=== PATIENT | male | born 1985 | race Caucasian/White ===

== ENCOUNTER 2021-11-29 14:25 | Emergency (ER) | payer OTHER ==
[2021-11-29 14:37] VITALS: BP 111/69; PULSE 86; RESP 20; TEMP 97.9
[2021-11-29] MEDS ORDERED: CLINDAMYCIN 150 MG CAP PO STA (17:03)
[2021-11-29] MEDS ORDERED: CEPHALEXIN 500 MG CAP PO STA (17:03)
--- NOTE | 2021-11-29 17:09 | ED ---
General Adult HPI - General Chief complaint: Skin/Abscess/Foreign Body Stated complaint: abcess on arm Time Seen by Provider: 11/29/21 16:29 Source: patient, RN notes reviewed, old records reviewed Mode of arrival: ambulatory Limitations: no limitations - History of Present Illness Initial comments: 36-year-old male with bilateral arm swelling and open sores. Patient has been using heroin for the past 18 months. The patient states his arms up and chronically infected he's had multiple rounds of antibiotics. He presented to [facility] and was sent to the emergency department for evaluation. He has not had any fever or systemic symptoms. He states that occasionally there is locations a drain on his arms. No significant pain. - Related Data Previous Rx's Medication Instructions Recorded Cephalexin [Keflex] 500 mg PO Q6HR 14 Days #56 cap 11/29/21 Clindamycin [Cleocin] 300 mg PO QID 14 Days #112 cap 11/29/21 Mupirocin 2% Oint [Bactroban 2% 1 applic TOPICAL TID #22 gm 11/29/21 Oint] Allergies Allergy/AdvReac Type Severity Reaction Status Date / Time morphine Allergy Anaphylaxis Verified 11/29/21 14:38 sulfadiazine Allergy Nausea & Verified 11/29/21 14:38 Vomiting sulfamethoxazole Allergy Nausea & Verified 11/29/21 14:38 [From Bactrim] Vomiting trimethoprim [From Bactrim] Allergy Nausea & Verified 11/29/21 14:38 Vomiting Review of Systems ROS Statement: Those systems with pertinent positive or pertinent negative responses have been documented in the HPI. ROS Other: All systems not noted in ROS Statement are negative. Past Medical History Past Medical History: No Reported History History of Any Multi-Drug Resistant Organisms: None Reported Past Surgical History: No Surgical Hx Reported Past Psychological History: No Psychological Hx Reported Smoking Status: Current every day smoker Past Alcohol Use History: None Reported Past Drug Use History: Heroin, IV Drug Use General Exam Limitations: no limitations General appearance: alert, in no apparent distress Head exam: Present: atraumatic, normocephalic Eye exam: Present: normal appearance, PERRL Cardiovascular Exam: Present: regular rate, normal rhythm GI/Abdominal exam: Present: soft. Absent: distended, tenderness Extremities exam: Present: other (Bilateral upper extremity open sores and cellulitis. I do not find a drainable abscess.) Neurological exam: Present: alert, oriented X3, CN II-XII intact. Absent: motor sensory deficit Psychiatric exam: Present: normal affect, normal mood Course Vital Signs 11/29/21 14:35 Temperature 97.9 F Pulse Rate 86 Respiratory 20 Rate Blood Pressure 111/69 O2 Sat by Pulse 100 Oximetry Medical Decision Making - Medical Decision Making 36-year-old male with IV drug abuse, multiple areas of open wounds on the bilateral upper extremities without a drainable abscess found. There is some cellulitis associated. Patient does not want any laboratory testing and prefers to try oral antibiotics rather than IV antibiotics at this time. Given that the patient has no systemic symptoms, no fever. I will allow for a trial of oral antibiotics. He started on Keflex and clindamycin in the emergency department. He is given a prescription for clindamycin, Keflex and mupirocin. Strict return parameters were discussed in his forearms are covered with a light dressing. Disposition Clinical Impression: Open wounds involving multiple regions of upper extremity, Cellulitis Disposition: HOME SELF-CARE Condition: Fair Instructions (If sedation given, give patient instructions): Cellulitis (ED) Additional Instructions: Please take antibiotics as prescribed, please change dressing daily on bilateral forearms. Prescriptions: Mupirocin 2% Oint [Bactroban 2% Oint] 1 applic TOPICAL TID #22 gm Clindamycin [Cleocin] 300 mg PO QID 14 Days #112 cap Cephalexin [Keflex] 500 mg PO Q6HR 14 Days #56 cap Is patient prescribed a controlled substance at d/c from ED?: No Referrals: None,Stated [Primary Care Provider] - 1-2 days Jasper Cruz MD [STAFF PHYSICIAN] - 1-2 days Time of Disposition: 17:07
== END 2021-11-29 17:30 | disposition home or self-care (01) ==
LOC: EC 14:25
DX: S41.102A Unspecified open wound of left upper arm, initial encounter (principal); S41.101A Unspecified open wound of right upper arm, initial encounter; L03.113 Cellulitis of right upper limb; L03.114 Cellulitis of left upper limb; F17.200 Nicotine dependence, unspecified, uncomplicated; Z88.6 Allergy status to analgesic agent; Z88.2 Allergy status to sulfonamides; X58.XXXA Exposure to other specified factors, initial encounter
CPT/HCPCS: 99282

== ENCOUNTER 2021-12-04 15:12 | Observation (INO) | payer OTHER ==
--- NOTE | 2021-12-04 15:49 | ED ---
General Adult HPI - General Chief complaint: Skin/Abscess/Foreign Body Stated complaint: Repeat cellulitis Time Seen by Provider: 12/04/21 15:30 Source: patient, RN notes reviewed, old records reviewed Mode of arrival: ambulatory - History of Present Illness Initial comments: Patient is a 36-year-old male presents to the emergency room with complaints of worsening of drainage and swelling along with pain to his bilateral upper extremities. He reports that he has been having ongoing upper extremity wounds for approximately 6 months. He was seen here in the emergency room on 11/29/2021 for similar symptoms and was started on Cleocin and Keflex. 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 He is complaining of generalized malaise he believes that it is a combination of worsening of his bilateral upper extremity is infections along with withdrawals from heroin. He is feeling anxious and occasional flushing and chills but denies chart tagging his temperature on a regular basis. He did does report occasional nausea but denies any vomiting. He admits to injecting heroin into his upper extremities up until one day prior to come to the emergency room last week. He states that he is hoping to remain drug free and is attempting to become admitted into a rehab facility after he has medically stable. 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 - Related Data Previous Rx's Medication Instructions Recorded Cephalexin [Keflex] 500 mg PO Q6HR 14 Days #56 cap 11/29/21 Clindamycin [Cleocin] 300 mg PO QID 14 Days #112 cap 11/29/21 Mupirocin 2% Oint [Bactroban 2% 1 applic TOPICAL TID #22 gm 11/29/21 Oint] Allergies Allergy/AdvReac Type Severity Reaction Status Date / Time morphine Allergy Anaphylaxis Verified 12/04/21 17:11 sulfadiazine Allergy Nausea & Verified 12/04/21 17:11 Vomiting sulfamethoxazole Allergy Nausea & Verified 12/04/21 17:11 [From Bactrim] Vomiting trimethoprim [From Bactrim] Allergy Nausea & Verified 12/04/21 17:11 Vomiting Review of Systems ROS Statement: Those systems with pertinent positive or pertinent negative responses have been documented in the HPI. ROS Other: All systems not noted in ROS Statement are negative. Past Medical History Past Medical History: No Reported History History of Any Multi-Drug Resistant Organisms: None Reported Past Surgical History: No Surgical Hx Reported Past Psychological History: No Psychological Hx Reported Smoking Status: Current every day smoker Past Alcohol Use History: None Reported Past Drug Use History: Heroin, IV Drug Use General Exam General appearance: alert, in no apparent distress Head exam: Present: atraumatic, normocephalic, normal inspection Eye exam: Present: normal appearance, PERRL, EOMI. Absent: scleral icterus, conjunctival injection, periorbital swelling ENT exam: Present: normal exam, mucous membranes moist Neck exam: Present: normal inspection. Absent: tenderness, meningismus, lymphadenopathy Respiratory exam: Present: normal lung sounds bilaterally. Absent: respiratory distress, wheezes, rales, rhonchi, stridor Cardiovascular Exam: Present: regular rate, normal rhythm, normal heart sounds. Absent: systolic murmur, diastolic murmur, rubs, gallop, clicks GI/Abdominal exam: Present: soft, normal bowel sounds. Absent: distended, tend erness, guarding, rebound, rigid Extremities exam: Present: other (Bilateral upper extremity swelling with multiple wounds primarily to the palmar aspect of the forearm with various stages of healing induration and mild amount of exudate noted. One sample from right forearm obtained. No odor.) Back exam: Present: normal inspection Neurological exam: Present: alert, oriented X3, CN II-XII intact Psychiatric exam: Present: normal affect, normal mood Skin exam: Present: other (Multiple wounds to upper extremities as noted above.) Course Vital Signs 12/04/21 15:15 Temperature 98.6 F Pulse Rate 78 Respiratory 18 Rate Blood Pressure 106/73 O2 Sat by Pulse 97 Oximetry Medical Decision Making - Medical Decision Making No indication for x-rays given lack of trauma. Culture obtained. Will check laboratory studies to evaluate for sepsis including CBC, blood cultures, CMP, lactic acid and blood cultures. Vital signs and lab blood work stable however patient with concerning symptoms of withdrawals versus failed outpatient antibiotic treatment. Case discussed with attending provider Dr. Santoyo who recommended observational admission for IV antibiotics and monitoring of culture. Will give 1 g of vancomycin at this time and monitor cultures. Patient very anxious regarding heroin withdrawals. Treatment options discussed. Will give oral Ativan dose. Case discussed with Dr. Auen [facility]. Will place admit observation orders. - Lab Data Result diagrams: 12/04/21 15:41 12/04/21 15:41 Lab Results 12/04/21 12/04/21 Range/Units 15:41 15:41 WBC 7.3 (3.8-10.6) k/uL RBC 4.35 (4.30-5.90) m/uL Hgb 13.0 (13.0-17.5) gm/dL Hct 39.3 (39.0-53.0) % MCV 90.4 (80.0-100.0) fL MCH 29.9 (25.0-35.0) pg MCHC 33.1 (31.0-37.0) g/dL RDW 13.6 (11.5-15.5) % Plt Count 332 (150-450) k/uL MPV 8.0 Neutrophils % 56 % Lymphocytes % 34 % Monocytes % 5 % Eosinophils % 2 % Basophils % 1 % Neutrophils # 4.1 (1.3-7.7) k/uL Lymphocytes # 2.5 (1.0-4.8) k/uL Monocytes # 0.4 (0-1.0) k/uL Eosinophils # 0.1 (0-0.7) k/uL Basophils # 0.1 (0-0.2) k/uL Sodium 142 (137-145) mmol/L Potassium 4.7 (3.5-5.1) mmol/L Chloride 105 (98-107) mmol/L Carbon Dioxide 30 (22-30) mmol/L Anion Gap 7 mmol/L BUN 12 (9-20) mg/dL Creatinine 0.71 (0.66-1.25) mg/dL Est GFR (CKD-EPI)AfAm >90 (>60 ml/min/1.73 sqM) Est GFR (CKD-EPI)NonAf >90 (>60 ml/min/1.73 sqM) Glucose 86 (74-99) mg/dL Calcium 9.1 (8.4-10.2) mg/dL Total Bilirubin 0.3 (0.2-1.3) mg/dL AST 16 L (17-59) U/L ALT 11 (4-49) U/L Alkaline Phosphatase 63 (38-126) U/L Total Protein 8.1 (6.3-8.2) g/dL Albumin 4.4 (3.5-5.0) g/dL Disposition Clinical Impression: Cellulitis Disposition: ADMITTED IP TO THIS HOSP Condition: Stable Is patient prescribed a controlled substance at d/c from ED?: No Referrals: None,Stated [Primary Care Provider] - 1-2 days Time of Disposition: 18:26
[2021-12-04 16:48] LABS: Basophils # (A) 0.1 k/uL (0-0.2); Basophils % (A) 1 %; Eosinophils # (A) 0.1 k/uL (0-0.7); Eosinophils % (A) 2 %; HCT 39.3 % (39.0-53.0); Lymphocytes # (A) 2.5 k/uL (1.0-4.8); Lymphocytes % (A) 34 %; MCH 29.9 pg (25.0-35.0); MCHC 33.1 g/dL (31.0-37.0); MCV 90.4 fL (80.0-100.0); Monocytes # (A) 0.4 k/uL (0-1.0); Monocytes % (A) 5 %; Neutrophils # (A) 4.1 k/uL (1.3-7.7); Neutrophils % (A) 56 %; Platelet Count 332 k/uL (150-450); RBC 4.35 m/uL (4.30-5.90); RDW 13.6 % (11.5-15.5); WBC 7.3 k/uL (3.8-10.6)
[2021-12-04 17:00] LABS: ALT 11 U/L (4-49); AST 16 U/L (17-59); African American GFR (CKD) >90 (>60 ml/min/1.73 sqM); Albumin 4.4 g/dL (3.5-5.0); Alkaline Phosphatase 63 U/L (38-126); Anion Gap 7 mmol/L; Blood Urea Nitrogen 12 mg/dL (9-20); Calcium 9.1 mg/dL (8.4-10.2); Carbon Dioxide 30 mmol/L (22-30); Chloride 105 mmol/L (98-107); Glucose 86 mg/dL (74-99); Non-African American GFR(CKD) >90 (>60 ml/min/1.73 sqM); Potassium 4.7 mmol/L (3.5-5.1); Sodium 142 mmol/L (137-145); Total Bilirubin 0.3 mg/dL (0.2-1.3); Total Protein 8.1 g/dL (6.3-8.2)
[2021-12-04] MEDS ORDERED: LORazepam 1 MG TAB PO STA (18:26)
[2021-12-04] MEDS ORDERED: VANCOMYCIN 1,500 MG in SODIUM CHLORIDE 0.9% 250 ML IVPB STA (18:27)
[2021-12-04] MEDS ORDERED: VANCOMYCIN IV PER PHARMACY 1 EACH MISC MISCELLANE PRN (18:32)
[2021-12-04] MEDS ORDERED: LOPERAMIDE 2 MG CAP PO PRN (20:53)
[2021-12-04] MEDS ORDERED: ONDANSETRON 4 MG/2 ML VIAL IVP PRN (20:53)
[2021-12-04] MEDS ORDERED: diphenhydrAMINE 50 MG/ML 1 ML VIAL IVP PRN (20:53)
[2021-12-04] MEDS ORDERED: DICYCLOMINE 20 MG TAB PO PRN (20:53)
[2021-12-04] MEDS ORDERED: NICOTINE 21MG/24HR PATCH TRANSDERM STA (21:51)
[2021-12-04] MEDS: KETOROLAC 15 MG/ML 1 ML VIAL IVP PRN (21:58)
[2021-12-04] MEDS: LORazepam 1 MG TAB PO PRN (22:00)
[2021-12-04] MEDS: cloNIDine HCL 0.1 MG TAB PO SCH (22:03)
--- NOTE | 2021-12-04 23:06 | P.HPIM ---
History of Present Illness H&P Date: 12/04/21 Chief Complaint: Skin lesions on bilateral upper extremities 36-year-old male with heroin dependence Patient comes in for assessment of his nonhealing bilateral upper extremity wounds he claims that they started disappearing over the past 6 months due to her when dependence however he decided to stop using this drug about a week ago seeking help he was started on antibiotics at home with clindamycin and Keflex however he noticed no improvement in his wounds he was hoping for the wounds to close up he denies any draining wounds denies any fevers or chills but reports s evere pain in his bilateral upper extremities mainly in the forearms where the skin lesions are. He is currently at [facility] for rehab and decided to come in for evaluation. He claims that last time he used heroin was about a week ago He denies any history of HIV diabetes or hepatitis. He denies any heavy alcohol consumption does admit to tobacco smoking Blood work in the ED overall was unremarkable Review of Systems Pertinent positives as noted in HPI. All other systems were reviewed and are negative Past Medical History Past Medical History: No Reported History History of Any Multi-Drug Resistant Organisms: None Reported Past Surgical History: No Surgical Hx Reported Past Psychological History: No Psychological Hx Reported Smoking Status: Current every day smoker Past Alcohol Use History: None Reported Past Drug Use History: Heroin, IV Drug Use - Past Family History Family Family Medical History: No Reported History Medications and Allergies Home Medications Medication Instructions Recorded Confirmed Type Cephalexin [Keflex] 500 mg PO Q6HR 14 Days #56 cap 11/29/21 12/04/21 Rx Clindamycin [Cleocin] 300 mg PO QID 14 Days #112 cap 11/29/21 12/04/21 Rx Mupirocin 2% Oint [Bactroban 2% 1 applic TOPICAL TID #22 gm 11/29/21 12/04/21 Rx Oint] Allergies Allergy/AdvReac Type Severity Reaction Status Date / Time morphine Allergy Anaphylaxis Verified 12/04/21 17:11 sulfadiazine Allergy Nausea & Verified 12/04/21 17:11 Vomiting sulfamethoxazole Allergy Nausea & Verified 12/04/21 17:11 [From Bactrim] Vomiting trimethoprim [From Bactrim] Allergy Nausea & Verified 12/04/21 17:11 Vomiting Physical Exam Vitals: Vital Signs Temp Pulse Resp BP Pulse Ox 12/04/21 18:31 78 115 H 115/74 99 12/04/21 15:15 98.6 F 78 18 106/73 97 Intake and Output 12/04/21 12/04/21 12/04/21 06:59 14:59 22:59 Other: Weight 99.79 kg Constitutional: No acute distress, conversant, pleasant Eyes: Anicteric sclerae, moist conjunctiva, Pupils equal round reactive to light ENMT: NC/AT Oropharynx clear, no erythema, or exudates Neck: Supple, FROM, no masses, or JVD No carotid bruits No thyromegaly Lungs: Clear to auscultation Clear to percussion Normal respiratory effort, no accessory muscle use Cardiovascular: Heart regular in rate and rhythm, No murmurs, gallops, or rubs No peripheral edema Abdominal: Soft Nontender, no guarding, rebound or rigidity Abdomen moving with respiration Normoactive bowel sounds No hepatomegaly, No splenomegaly No palpable mass No abdominal wall hernia noted Skin: Multiple skin lesions over bilateral upper extremities over the forearms different stages of healing with extensive scarring and skin discoloration, I did not appreciate any significant induration or warmth to touch there is no active drainage but wounds on the ventral aspect of bilateral forearms, also has scars from healing wounds over bilateral feet Extremities: No digital cyanosis No clubbing Pedal pulses intact and symmetrical Radial pulses intact and symmetrical No calf tenderness Psychiatric: Alert and oriented to person, place and time Appropriate affect fair judgement Neuro Muscles Strength 5/5 in all 4 extremities Sensation to light touch grossly present throughout Cranial nerves II-XII grossly intact No focal sensory deficits Lymphatics: no palpable cervical or supraclavicular , or inguinal lymph nodes Results CBC & Chem 7: 12/04/21 15:41 12/04/21 15:41 Labs: Abnormal Lab Results - Last 24 Hours (Table) 12/04/21 Range/Units 15:41 AST 16 L (17-59) U/L Assessment and Plan Assessment: Multiple skin lesions over bilateral forearms patient claims this is due to IV drug abuse with heroin Heroin addiction going through withdrawals last use was about 6 days ago Check HIV and hepatitis status of the patient and verbal consent obtained Patient was started on vancomycin IV Vascular surgery consultation for wound assessment and debridement Nothing by mouth after midnight IV fluid hydration with normal saline Patient will be placed on the following medication to ease his withdrawal symptoms Milton can 0.1 mg twice a day Benadryl when necessary for restlessness Ativan for agitation Loperamide 4 diarrhea Bentyl for abdominal cramps Zofran for nausea vomiting as needed Ambien when necessary for insomnia Toradol when necessary for pain Full code DVT prophylaxis heparin subcu 3 times a day
[2021-12-04] MEDS ORDERED: SODIUM CHLORIDE 0.9% 1,000 ML IV STA (23:09)
[2021-12-05] MEDS: HEPARIN SODIUM,PORCINE/PF 5,000 UNIT/0.5 ML SYRINGE SQ SCH ×4 (00:07→15:23)
[2021-12-05] MEDS: VANCOMYCIN 1,500 MG in SODIUM CHLORIDE 0.9% 250 ML IVPB SCH ×2 (02:08→10:18)
[2021-12-05] MEDS: LORazepam 1 MG TAB PO PRN ×3 (04:20→15:25)
[2021-12-05] MEDS: KETOROLAC 15 MG/ML 1 ML VIAL IVP PRN ×2 (04:20→10:05)
[2021-12-05] MEDS: cloNIDine HCL 0.1 MG TAB PO SCH (08:34)
--- NOTE | 2021-12-05 08:47 | P.GSCN ---
History of Present Illness Consult date: 12/05/21 Reason for Consult: This 36-year-old white male who presented to the emergency department with complaints of wounds to his bilateral upper extremities. He has no reported past medical history. He is a current every day smoker and heroin IV drug user. The patient states he's had these wounds for the last 6 months duration. He was recently seen in the emergency department on 11/29/2021 and given antibiotics and discharge. Patient states he's been using the antibiotics however he states that he does not believe his wounds are improving including the redness and swelling. Patient is a heroine user for the last 16 months duration. He states he's had the wounds for the last 6 months duration. He has not seen anybody from wound care. He continues to use heroin and states his last time was 11/29/2021. He is denying any fevers, chills, nausea, vomiting, abdominal pain, shortness of breath or chest pain. He was prescribed Cleocin and Keflex on 11/29/2021. He is currently on IV vancomycin. Review of Systems A 14 point review systems was completed all pertinent positives and negatives as stated in the HPI. Past Medical History Past Medical History: No Reported History History of Any Multi-Drug Resistant Organisms: None Reported Past Surgical History: No Surgical Hx Reported Past Psychological History: No Psychological Hx Reported Smoking Status: Current every day smoker Past Alcohol Use History: None Reported Past Drug Use History: Heroin, IV Drug Use - Past Family History Family Family Medical History: No Reported History Medications and Allergies Home Medications Medication Instructions Recorded Confirmed Type Cephalexin [Keflex] 500 mg PO Q6HR 14 Days #56 cap 11/29/21 12/04/21 Rx Clindamycin [Cleocin] 300 mg PO QID 14 Days #112 cap 11/29/21 12/04/21 Rx Mupirocin 2% Oint [Bactroban 2% 1 applic TOPICAL TID #22 gm 11/29/21 12/04/21 Rx Oint] Allergies Allergy/AdvReac Type Severity Reaction Status Date / Time morphine Allergy Anaphylaxis Verified 12/04/21 17:11 sulfadiazine Allergy Nausea & Verified 12/04/21 17:11 Vomiting sulfamethoxazole Allergy Nausea & Verified 12/04/21 17:11 [From Bactrim] Vomiting trimethoprim [From Bactrim] Allergy Nausea & Verified 12/04/21 17:11 Vomiting Surgical - Exam Vital Signs Temp Pulse Resp BP Pulse Ox 98.6 F 78 18 106/73 97 12/04/21 15:15 12/04/21 15:15 12/04/21 15:15 12/04/21 15:15 12/04/21 15:15 General appearance: The patient is alert, oriented, appears in no acute distress. HET: Head is normocephalic and atraumatic. Pupils are equal and reactive. Neck: Supple without lymphadenopathy. Trachea midline. Heart: S1 S2. Regular rate and rhythm. Lungs: Clear to auscultation bilaterally. Abdomen: Soft, nontender, nondistended. Extremities: Bilateral upper extremities with multiple wounds and scarring. Skin discoloration. No drainage noted from wounds, no significant redness or induration. Neurological: No focal deficits. Strength and sensation are grossly intact. Results - Labs 12/04/21 15:41 12/04/21 15:41 Abnormal Lab Results - Last 24 Hours (Table) 12/04/21 Range/Units 15:41 AST 16 L (17-59) U/L Microbiology - Last 24 Hours (Table) 12/04/21 15:30 Anaerobic Culture - Preliminary Arm - Right Diabetes panel 12/04/21 Range/Units 15:41 Sodium 142 (137-145) mmol/L Potassium 4.7 (3.5-5.1) mmol/L Chloride 105 (98-107) mmol/L Carbon Dioxide 30 (22-30) mmol/L BUN 12 (9-20) mg/dL Creatinine 0.71 (0.66-1.25) mg/dL Glucose 86 (74-99) mg/dL Calcium 9.1 (8.4-10.2) mg/dL AST 16 L (17-59) U/L ALT 11 (4-49) U/L Alkaline Phosphatase 63 (38-126) U/L Total Protein 8.1 (6.3-8.2) g/dL Albumin 4.4 (3.5-5.0) g/dL Calcium panel 12/04/21 Range/Units 15:41 Calcium 9.1 (8.4-10.2) mg/dL Albumin 4.4 (3.5-5.0) g/dL Pituitary panel 12/04/21 Range/Units 15:41 Sodium 142 (137-145) mmol/L Potassium 4.7 (3.5-5.1) mmol/L Chloride 105 (98-107) mmol/L Carbon Dioxide 30 (22-30) mmol/L BUN 12 (9-20) mg/dL Creatinine 0.71 (0.66-1.25) mg/dL Glucose 86 (74-99) mg/dL Calcium 9.1 (8.4-10.2) mg/dL Adrenal panel 12/04/21 Range/Units 15:41 Sodium 142 (137-145) mmol/L Potassium 4.7 (3.5-5.1) mmol/L Chloride 105 (98-107) mmol/L Carbon Dioxide 30 (22-30) mmol/L BUN 12 (9-20) mg/dL Creatinine 0.71 (0.66-1.25) mg/dL Glucose 86 (74-99) mg/dL Calcium 9.1 (8.4-10.2) mg/dL Total Bilirubin 0.3 (0.2-1.3) mg/dL AST 16 L (17-59) U/L ALT 11 (4-49) U/L Alkaline Phosphatase 63 (38-126) U/L Total Protein 8.1 (6.3-8.2) g/dL Albumin 4.4 (3.5-5.0) g/dL Assessment and Plan Assessment: 1. Multiple skin wounds bilateral upper extremities from IV drug abuse 2. Heroin addiction Plan: 1. Patient may have regular diet 2. Wound care consulted for inpatient and outpatient wound care 3. Continue antibiotics per medicine recommendations 4. No plans on surgical debridement 5. Local wound care per recommendations from wound clinic Thank you for this consultation, we'll continue to follow. The impression and plan of care has been dictated as directed. Dr. Joseph I performed a history and examination of this patient, discussed the same with the dictator. I agree with the dictator's note ,documented as a scribe. Any additional findings or plans will be noted.
[2021-12-05 08:49] VITALS: TEMP 97.8
[2021-12-05] MEDS ORDERED: ACETAMINOPHEN TAB 325 MG TAB PO PRN (10:41)
[2021-12-05] MEDS ORDERED: NICOTINE GUM (POLACRILEX) 2 MG GUM BUCCAL PRN (10:43)
--- NOTE | 2021-12-05 12:51 | P.CONS ---
History of Present Illness - Reason for Consult Consult date: 12/05/21 wound care - History of Present Illness This 36-year-old white male being seen on by wound care for nonhealing wounds to his bilateral upper extremities . He has no reported past medical history. He is a current every day smoker and heroin IV drug user. The patient states he's had these wounds for the last 6 months duration. He was recently seen in the emergency department on 11/29/2021 and given antibiotics and discharge. Patient states he's been using the antibiotics however he states that he does not believe his wounds are improving including the redness and swelling. Patient is a heroine user for the last 16 months duration. He states he's had the wounds for the last 6 months duration. He has not seen anybody from wound care. He continues to use heroin and states his last time was 11/29/2021. Patient has multiple open ulcerations with fat layer exposure with significant amount of slough and no granulation noted. Review Of Systems: Constitutional: No fever, no chills, no night sweats. No weight change. No weakness, fatigue or lethargy. No daytime sleepiness. Integumentary:reports wounds, no lesions. No rash or pruritus. No unusual bruising. No change in hair or nails. Physical exam: General Appearance: Alert, cooperative, no distress, appears stated age. Skin: See HPI all other Skin color, texture, tugor normal, no rashes or lesions. Neurologic: Alert oriented x3 Assessment: 1. Nonhealing ulcerations of other site with fat layer exposure 2. IV drug abuser Plan: 1. Apply Santyl, saline was gauze, dry gauze, rolled gauze and secure with paper tape. Wrap with Zachary wrap. Change daily. Patient would benefit from advanced wound care and wound care clinic. DNP note has been reviewed and discussed with Dr. Tejada and the impression and plan of care has been directed as dictated. Past Medical History Past Medical History: No Reported History History of Any Multi-Drug Resistant Organisms: None Reported Past Surgical History: No Surgical Hx Reported Past Psychological History: No Psychological Hx Reported Smoking Status: Current every day smoker Past Alcohol Use History: None Reported Past Drug Use History: Heroin, IV Drug Use - Past Family History Family Family Medical History: No Reported History Medications and Allergies Home Medications Medication Instructions Recorded Confirmed Type Cephalexin [Keflex] 500 mg PO Q6HR 14 Days #56 cap 11/29/21 12/04/21 Rx Clindamycin [Cleocin] 300 mg PO QID 14 Days #112 cap 11/29/21 12/04/21 Rx Mupirocin 2% Oint [Bactroban 2% 1 applic TOPICAL TID #22 gm 11/29/21 12/04/21 Rx Oint] Allergies Allergy/AdvReac Type Severity Reaction Status Date / Time morphine Allergy Anaphylaxis Verified 12/04/21 17:11 sulfadiazine Allergy Nausea & Verified 12/04/21 17:11 Vomiting sulfamethoxazole Allergy Nausea & Verified 12/04/21 17:11 [From Bactrim] Vomiting trimethoprim [From Bactrim] Allergy Nausea & Verified 12/04/21 17:11 Vomiting Physical Exam Vitals: Vital Signs Temp Pulse Pulse Resp BP BP BP 12/05/21 08:48 97.8 F 68 18 101/67 12/05/21 08:33 77 111/75 12/05/21 00:55 97.6 F 71 15 122/71 12/04/21 22:03 73 18 110/64 12/04/21 18:31 78 115 H 115/74 12/04/21 15:15 98.6 F 78 18 106/73 Pulse Ox 12/05/21 08:48 99 12/05/21 08:33 12/05/21 00:55 97 12/04/21 22:03 100 12/04/21 18:31 99 12/04/21 15:15 97 Intake and Output 12/04/21 12/05/21 12/05/21 22:59 06:59 14:59 Intake Total 0 118 Balance 0 118 Intake: Oral 0 118 Other: # Voids 0 Weight 99.79 kg 99.79 kg Results CBC & Chem 7: 12/04/21 15:41 12/04/21 15:41 Labs: Abnormal Lab Results - Last 24 Hours (Table) 12/04/21 Range/Units 15:41 AST 16 L (17-59) U/L Microbiology - Last 24 Hours (Table) 12/04/21 15:30 Anaerobic Culture - Preliminary Arm - Right Assessment and Plan (1) Non-pressure chronic ulcer of skin of other sites with fat layer exposed Current Visit: Yes Status: Acute Code(s): L98.492 - NON-PRS CHRONIC ULCER OF SKIN OF SITES W FAT LAYER EXPOSED SNOMED Code(s): 77842890 (2) Cellulitis Current Visit: Yes Status: Acute Code(s): L03.90 - CELLULITIS, UNSPECIFIED SNOMED Code(s): 077342083
[2021-12-05] MEDS ORDERED: COLLAGENASE 250 UNIT/GM OINTMENT 30 GM TUBE TOPICAL SCH (13:00)
--- NOTE | 2021-12-05 13:30 | P.DS ---
Providers Date of admission: 12/04/21 22:17 Expected date of discharge: 12/05/21 Attending physician: Joanne Roca MD Consults: 12/04/21 20:58 Consult Physician Routine Consulting Provider: Familia Joseph Consult Reason/Comments: multiple wounds bilateral forearm Do you want consulting provider notified?: Yes, Notify in am Primary care physician: Stated None Hospital Course: Discharge Diagnosis: Multiple skin lesions and nonhealing ulcers on bilateral forearms secondary to IV drug abuse Heroin abuse Hospital Course: 36-year-old male with heroin dependence Patient comes in for assessment of his nonhealing bilateral upper extremity wounds he claims that they started disappearing over the past 6 months due to her when dependence however he decided to stop using this drug about a week ago seeking help he was started on antibiotics at home with clindamycin and Keflex however he noticed no improvement in his wounds he was hoping for the wounds to close up he denies any draining wounds denies any fevers or chills but reports severe pain in his bilateral upper extremities mainly in the forearms where the skin lesions are. He is currently at [facility] for rehab and decided to come in for evaluation. He claims that last time he used heroin was about a week ago He denies any history of HIV diabetes or hepatitis. He denies any heavy alcohol consumption does admit to tobacco smoking Blood work in the ED overall was unremarkable Patient was started on IV vancomycin. Patient was seen by vascular surgery who said no surgical intervention. Patient was seen by wound care who gave recommendations and recommended a follow-up at the wound care clinic. Patient was told that he can take months for his wounds to heal and he needs to follow up closely at the wound care clinic. His wounds did not appear infected. We'll resume his outpatient antibiotics on discharge. Gen. hospitalization patient with asked for increase in his pain meds multiple times. Patient was told that his only options are Tylenol and NSAIDs. Patient will return back to [facility]. Patient seen and examined at bedside.[] Vital signs reviewed and stable. General: [non toxic], [no distress], [appears at stated age] Derm: Multiple nonhealing ulcers in bilateral upper extremities Head: [atraumatic], [normocephalic], [symmetric] Eyes: [EOMI], [no lid lag], [anicteric sclera] Mouth: [no lip lesion], [mucus membranes moist] Cardiovascular: [S1S2 reg], [no murmur], [positive posterior tibial pulse bilateral], Lungs: [CTA bilateral], [no rhonchi, no rales] , [no accessory muscle use] Abdominal: [soft], [ nontender to palpation], [no guarding], [no appreciable organomegaly] obese Ext: [no gross muscle atrophy], [no edema], [no contractures] Neuro: [ CN II-XI grossly intact], [no focal neuro deficits] Psych: [Alert], [oriented], [appropriate affect] A total of [33] minutes of time were spent preparing this complex discharge summary . Patient Condition at Discharge: Stable Plan - Discharge Summary New Discharge Prescriptions: New Collagenase [Santyl Ointment] 1 applic TOPICAL DAILY each Continue Clindamycin [Cleocin] 300 mg PO QID 14 Days #112 cap Cephalexin [Keflex] 500 mg PO Q6HR 14 Days #56 cap Discontinued Mupirocin 2% Oint [Bactroban 2% Oint] 1 applic TOPICAL TID #22 gm Discharge Medication List Cephalexin [Keflex] 500 mg PO Q6HR 14 Days #56 cap 11/29/21 [Rx] Clindamycin [Cleocin] 300 mg PO QID 14 Days #112 cap 11/29/21 [Rx] Collagenase [Santyl Ointment] 1 applic TOPICAL DAILY each 12/05/21 [Rx] Follow up Appointment(s)/Referral(s): None,Stated [Primary Care Provider] - 1-2 days [facility] [NON-STAFF] - As Needed (Must have ID with a [facility] address) [facility] [NON-STAFF] - 2 Weeks Discharge/Stand Alone Forms: Inp Substance Abuse Facilities Discharge Disposition: OTHER INSTITUTION NOT DEFINED Plan of Treatment: Apply Santyl, saline was gauze, dry gauze, rolled gauze and secure with paper tape. Wrap with Zachary wrap. Change daily. Patient would benefit from advanced wound care and wound care clinic.
[2021-12-05 14:23] VITALS: BP 127/69; PULSE 97; RESP 20
[2021-12-05 17:08] LABS: Hepatitis A Antibody IgM Nonreactive (Nonreactive); Hepatitis B Core IgM Nonreactive (Nonreactive); Hepatitis B Surface Antigen Nonreactive (Nonreactive); Hepatitis C IgG Antibody Nonreactive (Nonreactive)
[2021-12-05 20:38] LABS: HIV 2 AB Non-Reactive (Non-Reactive); HIV AB P24 Non-Reactive (Non-Reactive); HIV P24 AG Non-Reactive (Non-Reactive)
[2021-12-06] MEDS ORDERED: VANCOMYCIN TROUGH DUE 1 EACH MISC MISCELLANE ONE (10:00)
== END 2021-12-05 15:46 | disposition other institution (70) ==
LOC: EC 15:12 → 6NMEDSUR 22:17
PROVIDERS: ADMIT Internal Medicine; ATTEND Internal Medicine
DX: L03.90 Cellulitis, unspecified (principal); L98.492 Non-pressure chronic ulcer of skin of other sites with fat layer exposed; F17.200 Nicotine dependence, unspecified, uncomplicated; F11.20 Opioid dependence, uncomplicated
CPT/HCPCS: 96376; 96366 ×2; 96361; 96365; 96375; 99284; 36415; 80053; 80074; 85025; 87040; 87070; 87205; 87075; 87077; 87186; 87390; G0378 ×2; S4990; J3370 ×2; J1200; J2405; J1885 ×2